=== PATIENT | male | born 1975 | race Caucasian/White ===

== ENCOUNTER 2017-03-25 13:37 | Emergency (ER) | payer MEDICAID, OTHER ==
[~2017-03-25] VITALS: Ht 165.1 cm; Wt 72.6 kg
[~2017-03-25 13:37] MED LIST: DICY20TA11 PO; HYDR2TAB4 PO; Metoclopramide Hcl PO; ONDA4TAB5 PO; PANT40TA2 PO; SUCR1TAB31 PO
[2017-03-25] MEDS ORDERED: HYDROMORPHONE 1 MG/1 ML DISP.SYRIN IV ONE ×2 (14:15→15:45)
[2017-03-25] MEDS ORDERED: PANTOPRAZOLE SODIUM 40 MG VIAL IV ONE (14:15)
[2017-03-25] MEDS ORDERED: ONDANSETRON 4 MG/2 ML VIAL IV ONE (14:15)
[2017-03-25] MEDS ORDERED: IV NORMAL SALINE 1000 ML BAG IV ONE (14:15)
--- NOTE | 2017-03-25 14:35 | NUR ---
Pt c/o Right sided and midline ABD pain and tenderness since 0500, now 05/30. N/V x1. Pt also c/o not being able to get a full breath due to the pain, SPO2=99%. Pt denies CP, dizziness, no other complaints, mild to moderate distress noted. pt placed on monitor, IV 20g left FA, blood drawn and given to director of laboratory operations, EKG given to .
[2017-03-25] MEDS ORDERED: HYDROMORPHONE 2 MG/1 ML DISP.SYRIN ONE ×2 (14:37→15:59)
[2017-03-25] MEDS ORDERED: ONDANSETRON 4 MG/2 ML VIAL ONE ×2 (14:37→15:59)
[2017-03-25] MEDS ORDERED: PANTOPRAZOLE SODIUM 40 MG VIAL ONE (14:37)
[2017-03-25 14:42] LABS: BASOPHILS # (AUTO) 0.1 K/uL (0.0-8.0); BASOPHILS % (AUTO) 0.6 % (0.0-2.0); EOSINOPHILS # (AUTO) 0.1 K/uL (0.0-0.7); EOSINOPHILS % (AUTO) 0.7 % (0.0-7.0); HEMATOCRIT 46.7 % (40-50); HEMOGLOBIN 15.7 G/DL (14.0-18.0); LYMPHOCYTES # (AUTO) 1.2 K/UL (0.8-4.8); LYMPHOCYTES % (AUTO) 7.1 % (20.5-51.5); MEAN CORPUSCULAR HEMOGLOBIN 31.5 UUG (27.0-31.0); MEAN CORPUSCULAR HGB CONC 34 g/dL (32.0-37.0); MEAN CORPUSCULAR VOLUME 93.4 FL (82.0-92.0); MONOCYTES # (AUTO) 0.5 K/UL (0.1-1.30); MONOCYTES % (AUTO) 2.8 % (0.0-11.0); NEUTROPHILS # (AUTO) 14.6 K/UL (1.8-8.9); NEUTROPHILS % (AUTO) 88.8 % (38.5-71.5); PLATELET COUNT (AUTO) 289 K/UL (150-450); WHITE BLOOD COUNT (AUTO) 16.5 K/UL (4.0-11.2)
[2017-03-25 14:47] LABS: BILIRUBIN,DIRECT 0.2 mg/dL (0.0-0.2); BILIRUBIN,TOTAL 0.8 mg/dL (0.2-1.0); CREATININE 1.1 mg/dL (0.6-1.3); POTASSIUM 3.7 mmol/L (3.5-5.1); TOTAL PROTEIN, SERUM 8.3 g/dL (6.4-8.2)
--- NOTE | 2017-03-25 14:52 | NUR ---
Pt sleeping in bed. Noted that pt became apneic up to 30 sec. while sleeping and SPO2 dropped to mid 80's, then pt restarted breathing again.
--- NOTE | 2017-03-25 15:25 | NUR ---
Pt back from CT
[2017-03-25] MEDS ORDERED: ONDANSETRON IV *ER 4 MG/2 ML VIAL IV ONE (15:45)
--- NOTE | 2017-03-25 15:59 | NUR ---
Removed IV, catheter intact, site okay, bandaged. Gave pt d/c instructions, verbalized understanding.
[2017-03-25 16:01] VITALS: BP 103/36
== END 2017-03-25 16:02 | disposition home or self-care (01) ==
LOC: ER 13:41
DX: G89.29 Other chronic pain (principal); R10.13 Epigastric pain; R11.2 Nausea with vomiting, unspecified; K58.9 Irritable bowel syndrome, unspecified
CPT/HCPCS: 70030-TC; 71010; 83690; 85025; 85730; 93005; A4663; C9113; J1170; J2405; J7030

== ENCOUNTER 2017-04-27 13:26 | Emergency (ER) | payer MEDICAID, OTHER ==
[~2017-04-27] VITALS: Ht 170.2 cm; Wt 68.0 kg
[2017-04-27] MEDS ORDERED: HYDROMORPHONE 1 MG/1 ML DISP.SYRIN IV ONE (13:45)
[2017-04-27] MEDS ORDERED: IV NORMAL SALINE 1000 ML BAG IV ONE (13:45)
[2017-04-27] MEDS ORDERED: METOCLOPRAMIDE HCL 10 MG/2 ML VIAL IV ONE (13:45)
[2017-04-27] MEDS ORDERED: ONDANSETRON 4 MG/2 ML VIAL IV ONE (13:45)
[2017-04-27] MEDS ORDERED: METOCLOPRAMIDE HCL 10 MG/2 ML VIAL ONE (14:18)
[2017-04-27] MEDS ORDERED: ONDANSETRON 4 MG/2 ML VIAL ONE (14:19)
[2017-04-27] MEDS ORDERED: HYDROMORPHONE 2 MG/1 ML DISP.SYRIN ONE (14:19)
[2017-04-27 14:21] LABS: BASOPHILS # (AUTO) 0.2 K/uL (0.0-8.0); BASOPHILS % (AUTO) 1.7 % (0.0-2.0); EOSINOPHILS # (AUTO) 0.1 K/uL (0.0-0.7); EOSINOPHILS % (AUTO) 0.5 % (0.0-7.0); HEMATOCRIT 45.8 % (40-50); HEMOGLOBIN 15.5 G/DL (14.0-18.0); LYMPHOCYTES # (AUTO) 1.3 K/UL (0.8-4.8); LYMPHOCYTES % (AUTO) 11.1 % (20.5-51.5); MEAN CORPUSCULAR HEMOGLOBIN 31.8 UUG (27.0-31.0); MEAN CORPUSCULAR HGB CONC 34 g/dL (32.0-37.0); MONOCYTES # (AUTO) 0.8 K/UL (0.1-1.30); MONOCYTES % (AUTO) 6.2 % (0.0-11.0); NEUTROPHILS # (AUTO) 9.7 K/UL (1.8-8.9); NEUTROPHILS % (AUTO) 80.5 % (38.5-71.5); PLATELET COUNT (AUTO) 228 K/UL (150-450); RED BLOOD CELL COUNT(AUTO) 4.87 MIL/UL (4.7-6.1); WHITE BLOOD COUNT (AUTO) 12.1 K/UL (4.0-11.2)
[2017-04-27 14:25] LABS: BILIRUBIN,DIRECT 0.1 mg/dL (0.0-0.2); BILIRUBIN,TOTAL 0.5 mg/dL (0.2-1.0); TOTAL PROTEIN, SERUM 8.1 g/dL (6.4-8.2)
--- NOTE | 2017-04-27 14:38 | NUR ---
Patient is resting comfortably in bed with eyes closed. PATIENT IS PAIN FREE AT THIS TIME. Patient's spouse is at bedside.
--- NOTE | 2017-04-27 15:00 | NUR ---
"Okay for discharge" per Dr Coleman. U/A cancelled per MD order.
--- NOTE | 2017-04-27 15:01 | NUR ---
Patient discharged to home in stable conditon. Written and verbal after care instructions given to patient's spouse. Patient's spouse verbalizes understanding of instructions. Patient verbalized decreased abdominal pains & nausea .
== END 2017-04-27 15:26 | disposition home or self-care (01) ==
LOC: ER 13:26
DX: K58.0 Irritable bowel syndrome with diarrhea (principal); R11.2 Nausea with vomiting, unspecified
CPT/HCPCS: 36415; 83690; 85025; A4663; J1170; J2405; J2765; J3490; J7030

== ENCOUNTER 2017-12-09 01:21 | Emergency (ER) | payer OTHER ==
[~2017-12-09] VITALS: Ht 167.6 cm; Wt 56.7 kg
[2017-12-09] MEDS ORDERED: IV NORMAL SALINE 1000 ML BAG IV ONE (01:30)
[2017-12-09] MEDS ORDERED: FAMOTIDINE. 20 MG/2 ML VIAL IV ONE ×2 (01:30→01:45)
[2017-12-09] MEDS ORDERED: LORAZEPAM 2 MG/1 ML VIAL IV ONE (01:30)
[2017-12-09] MEDS ORDERED: ONDANSETRON 4 MG/2 ML VIAL IV ONE (01:30)
[2017-12-09] MEDS ORDERED: MORPHINE SULFATE 2 MG/1 ML DISP.SYRIN IV ONE (01:30)
[2017-12-09] MEDS ORDERED: MORPHINE SULFATE 4 MG/1 ML DISP.SYRIN ONE (01:44)
[2017-12-09] MEDS ORDERED: LORAZEPAM 2 MG/1 ML VIAL ONE (01:45)
[2017-12-09] MEDS ORDERED: ONDANSETRON 4 MG/2 ML VIAL ONE (01:45)
[2017-12-09 01:47] LABS: BASOPHILS # (AUTO) 0.1 K/uL (0.0-8.0); BASOPHILS % (AUTO) 0.6 % (0.0-2.0); EOSINOPHILS % (AUTO) 0.1 % (0.0-7.0); HEMATOCRIT 47.7 % (36.7-47.1); HEMOGLOBIN 16.2 g/dL (12.5-16.3); LYMPHOCYTES # (AUTO) 1.8 K/uL (20.0-40.0); LYMPHOCYTES % (AUTO) 13.6 % (20.5-51.5); MEAN CORPUSCULAR HEMOGLOBIN 32.2 uug (23.8-33.4); MEAN CORPUSCULAR HGB CONC 34 g/dL (32.5-36.3); MEAN CORPUSCULAR VOLUME 94.7 fL (73.0-96.2); MONOCYTES # (AUTO) 0.9 K/uL (2.0-10.0); MONOCYTES % (AUTO) 6.5 % (0.0-11.0); NEUTROPHILS # (AUTO) 10.4 K/uL (1.8-8.9); NEUTROPHILS % (AUTO) 79.2 % (38.5-71.5); PLATELET COUNT (AUTO) 223 K/uL (152-348); RED BLOOD CELL COUNT(AUTO) 5.04 MIL/uL (4.06-5.63); WHITE BLOOD COUNT (AUTO) 13.1 K/uL (3.6-10.2)
[2017-12-09 02:08] LABS: BILIRUBIN,DIRECT 0.2 mg/dL (0.0-0.2); BILIRUBIN,TOTAL 0.9 mg/dL (0.2-1.0); CREATININE 1.2 mg/dL (0.6-1.3); POTASSIUM 4.1 mmol/L (3.5-5.1); TOTAL PROTEIN, SERUM 8.9 g/dL (6.4-8.2)
--- NOTE | 2017-12-09 02:21 | NUR ---
PT IN BED. PT'S SPOUSE AT BEDSIDE. PT IS RESTING QUIETLY WITH EYES CLOSED. PT IS EASILY AROUSABLE TO VOICE. PT IS NO LONGER VOMITING. NO SIGNS OF DISTRESS WITNESSED AT THIS TIME.
--- NOTE | 2017-12-09 03:22 | NUR ---
PT SUCCESSFULLY PASSED PO CHALLENGE
--- NOTE | 2017-12-09 04:05 | NUR ---
Patient discharged to home in stable conditon. Written and verbal after care instructions given. Patient verbalizes understanding of instructions. Patient reported reduced pain upon discharge. PO challenge was passed successfully. Peripheral IV was removed. Patient able to ambulate with assistance of spouse.
[2017-12-09 04:12] VITALS: BP 133/93
== END 2017-12-09 04:05 | disposition home or self-care (01) ==
LOC: ER 01:26
DX: R10.84 Generalized abdominal pain (principal); G89.29 Other chronic pain; Z79.2 Long term (current) use of antibiotics; Z79.891 Long term (current) use of opiate analgesic; Z79.899 Other long term (current) drug therapy
CPT/HCPCS: 36415; 83690; 85025; A4663; J2060; J2270; J2405; J3490; J7030

== ENCOUNTER 2018-10-03 13:48 | Emergency (ER) | payer OTHER ==
[~2018-10-03] VITALS: Ht 167.6 cm; Wt 70.3 kg
--- NOTE | 2018-10-03 13:55 | NUR ---
PT A/OX4, PRESENTS TO THE ER C/O ABD PAIN. PT MOANING AND YELPING IN PAIN. UNABLE TO ACCURATELY ASSESS THE ABD PAIN. PT IS HYPERTENSIVE AND TACHYCARDIC, ER MD AWARE. PT DENIES C/P, SOB, DIZZINESS, HEADACHE.
--- NOTE | 2018-10-03 13:56 | NUR ---
CLAUDIA GOLDMAN AT BEDSIDE FOR MSE.
[2018-10-03] MEDS ORDERED: LORAZEPAM 2 MG/1 ML VIAL IV ONE ×2 (14:00→14:45)
[2018-10-03] MEDS ORDERED: PANTOPRAZOLE SODIUM 40 MG VIAL IV ONE (14:00)
[2018-10-03] MEDS ORDERED: IV NORMAL SALINE 1000 ML BAG IV ONE (14:00)
[2018-10-03] MEDS ORDERED: METOCLOPRAMIDE HCL 10 MG/2 ML VIAL IV ONE (14:00)
[2018-10-03] MEDS ORDERED: HYOS-17 SL (14:03)
[2018-10-03] MEDS ORDERED: LORA1TAB PO (14:03)
[2018-10-03] MEDS ORDERED: LORAZEPAM 2 MG/1 ML VIAL ONE ×2 (14:04→14:49)
[2018-10-03] MEDS ORDERED: PANTOPRAZOLE SODIUM 40 MG VIAL ONE (14:04)
[2018-10-03] MEDS ORDERED: METOCLOPRAMIDE HCL 10 MG/2 ML VIAL ONE (14:04)
--- NOTE | 2018-10-03 14:13 | NUR ---
FACILITIES SPECIALIST AT BEDSIDE.
[2018-10-03 14:14] LABS: BASOPHILS # (AUTO) 0.1 K/uL (0.0-8.0); BASOPHILS % (AUTO) 0.9 % (0.0-2.0); EOSINOPHILS % (AUTO) 0.3 % (0.0-7.0); HEMATOCRIT 49.4 % (36.7-47.1); HEMOGLOBIN 16.8 g/dL (12.5-16.3); LYMPHOCYTES # (AUTO) 2.2 K/uL (20.0-40.0); LYMPHOCYTES % (AUTO) 17.7 % (20.5-51.5); MEAN CORPUSCULAR HEMOGLOBIN 31.8 uug (23.8-33.4); MEAN CORPUSCULAR HGB CONC 34 g/dL (32.5-36.3); MEAN CORPUSCULAR VOLUME 93.4 fL (73.0-96.2); MONOCYTES # (AUTO) 1.2 K/uL (2.0-10.0); MONOCYTES % (AUTO) 9.8 % (0.0-11.0); NEUTROPHILS # (AUTO) 8.7 K/uL (1.8-8.9); NEUTROPHILS % (AUTO) 71.3 % (38.5-71.5); PLATELET COUNT (AUTO) 248 K/uL (152-348); RED BLOOD CELL COUNT(AUTO) 5.29 MIL/uL (4.06-5.63); WHITE BLOOD COUNT (AUTO) 12.3 K/uL (3.6-10.2)
[2018-10-03 14:18] LABS: CREATININE 1.5 mg/dL (0.6-1.3); POTASSIUM 3.3 mmol/L (3.5-5.1)
[2018-10-03 14:23] LABS: BILIRUBIN,DIRECT 0.2 mg/dL (0.0-0.2); BILIRUBIN,TOTAL 1.2 mg/dL (0.2-1.0); TOTAL PROTEIN, SERUM 9.4 g/dL (6.4-8.2)
[2018-10-03] MEDS ORDERED: POTASSIUM CHLORIDE 20 MEQ TAB.PRT.SR PO ONE (14:30)
[2018-10-03] MEDS ORDERED: POTASSIUM CHLORIDE 20 MEQ TAB.PRT.SR ONE (14:32)
--- NOTE | 2018-10-03 14:39 | NUR ---
CLAUDIA GOLDMAN AT BEDSIDE FOR PT UPDATE.
[2018-10-03] MEDS ORDERED: DICYCLOMINE HCL 20 MG/2 ML AMPUL IM SCH (14:45)
[2018-10-03] MEDS ORDERED: DICYCLOMINE HCL 20 MG TABLET PO SCH (14:45)
--- NOTE | 2018-10-03 14:57 | NUR ---
PT TAKEN TO RADIOLOGY FOR CT SCAN.
--- NOTE | 2018-10-03 15:38 | NUR ---
Patient discharged to home in stable conditon. Written and verbal after care instructions given. Patient verbalizes understanding of instructions. PT D/C W/ PRESCRIPTIONS. ALL BELONGINGS W/ PT. PT ASSISTED OUT TO PRIVATE VEHICLE IN W/C. PT'S WILL DRIVE PT HOME IN PRIVATE VEHICLE. 20G IV ACCESS IN L FOREARM REMOVED PRIOR TO D/C - INNER CANNULA INTACT.
[2018-10-03 15:39] VITALS: BP 143/79
== END 2018-10-03 15:40 | disposition home or self-care (01) ==
LOC: ER 13:48
DX: R10.84 Generalized abdominal pain (principal); E87.6 Hypokalemia; R11.10 Vomiting, unspecified; Z79.2 Long term (current) use of antibiotics; Z79.899 Other long term (current) drug therapy
CPT/HCPCS: 36415; 74018; 74176; 80048; 80076; 83690; 85025; 96361; 96372; 96374; 96375; 96376; 99284; C9113; J0500; J2060 ×2; J2765; 88342; A4663; J7030

== ENCOUNTER 2021-09-24 18:23 | Emergency (ER) | payer MEDICAID, OTHER ==
[~2021-09-24] VITALS: Ht 167.6 cm; Wt 70.3 kg
[~2021-09-24 18:23] MED LIST changes: -DICY20TA11 PO; +HYOS-17 SL; +LORA1TAB PO; -ONDA4TAB5 PO
[2021-09-24] MEDS ORDERED: ONDANSETRON 4 MG/2 ML VIAL ONE (18:41)
[2021-09-24] MEDS ORDERED: MORPHINE SULFATE 4 MG/1 ML DISP.SYRIN ONE (18:41)
[2021-09-24] MEDS ORDERED: ONDANSETRON 4 MG/2 ML VIAL IV ONE (18:45)
[2021-09-24] MEDS ORDERED: IV NORMAL SALINE 500 ML BAG IV ONE (18:45)
[2021-09-24] MEDS ORDERED: MORPHINE SULFATE 4 MG/1 ML DISP.SYRIN IV ONE (18:45)
[2021-09-24 19:09] LABS: HEMATOCRIT 47.8 % (36.7-47.1); MEAN CORPUSCULAR HEMOGLOBIN 33.6 uug (23.8-33.4); PLATELET COUNT (AUTO) 247 K/uL (152-348)
[2021-09-24 19:14] LABS: CREATININE 1.3 mg/dL (0.6-1.3); POTASSIUM 3.3 mmol/L (3.5-5.1)
[2021-09-24] MEDS ORDERED: HYDROMORPHONE 1 MG/1 ML DISP.SYRIN IV ONE (19:15)
[2021-09-24 19:20] LABS: BILIRUBIN,TOTAL 0.8 mg/dL (0.2-1.0); TOTAL PROTEIN, SERUM 8.5 g/dL (6.4-8.2)
[2021-09-24] MEDS ORDERED: HYDROMORPHONE 1 MG/1 ML DISP.SYRIN ONE (19:24)
[2021-09-24] MEDS ORDERED: IOHEXOL 350 100 ML INFUS..BTL ONE (19:28)
[2021-09-24] MEDS ORDERED: IV NORMAL SALINE 250 ML IV ONE (19:28)
[2021-09-24] MEDS ORDERED: SWABABLE VALVE TRANSFER SET EA MC ONE (19:28)
--- NOTE | 2021-09-24 19:30 | NUR ---
pt a/o pending cat scan.
--- NOTE | 2021-09-24 19:34 | NUR ---
pt taken to cat scan.
--- NOTE | 2021-09-24 19:49 | NUR ---
pt returned from cat scan
--- NOTE | 2021-09-24 21:16 | NUR ---
Patient discharged to home in stable condition. Written and verbal after care instructions given. Patient verbalizes understanding of instructions. Stressed follow up or return to ER for worsening s/s.pt ambulated without assistance denies pain.
[2021-09-24 21:19] VITALS: BP 130/80
== END 2021-09-24 21:19 | disposition home or self-care (01) ==
LOC: ER 18:24
DX: R10.84 Generalized abdominal pain (principal); R11.2 Nausea with vomiting, unspecified; R19.7 Diarrhea, unspecified; K50.90 Crohn's disease, unspecified, without complications; R00.0 Tachycardia, unspecified; Z83.3 Family history of diabetes mellitus; Z82.49 Family history of ischemic heart disease and other diseases of the circulatory system; F41.9 Anxiety disorder, unspecified; K29.50 Unspecified chronic gastritis without bleeding; Z79.899 Other long term (current) drug therapy; R07.89 Other chest pain
CPT/HCPCS: 36415; 71045; 74177; 80053; 83690; 84484; 85025; 85651; 86140; 87040 ×2; 93005; 96374; 96375; 99285; J1170; J2270; J2405; Q9967; 70030-TC; A4663; J7030; J7050

== ENCOUNTER 2021-12-13 04:32 | Emergency (ER) | payer OTHER ==
[~2021-12-13] VITALS: Ht 165.1 cm; Wt 68.0 kg
--- NOTE | 2021-12-13 05:00 | NUR ---
PT AMBULATED TO ER C/O ABD PAIN WITH N/V/D, STATES HE HAS HX OF CROHN'S DISEASE. PT WAS SEEN AT [facility] N[facility] FOR THE SAME COMPLAINT. A/O X4, NO SOB OR LABORED BREATHING, AFEBRILE. DENIES CP/PRESSURE.
--- NOTE | 2021-12-13 05:02 | NUR ---
DR. LUIS Caraballo AT BEDSIDE, MSE IN PROGRESS.
--- NOTE | 2021-12-13 05:10 | NUR ---
Patient eloped from facility. ER physician Dr. Cody Caraballo notified.
== END 2021-12-13 05:13 | disposition left against medical advice (07) ==
LOC: ER 04:37
DX: G89.29 Other chronic pain (principal); R10.84 Generalized abdominal pain; K58.9 Irritable bowel syndrome, unspecified; K29.50 Unspecified chronic gastritis without bleeding
CPT/HCPCS: A4663